=== PATIENT | male | born 1960 | race Caucasian/White ===

== ENCOUNTER → 2016-08-22 | Outpatient (CLI) | payer OTHER ==
--- NOTE | 2016-08-22 17:16 | CONS ---
DATE OF CONSULTATION: 08/22/2016 REASON FOR CONSULTATION: Sleep apnea. This is a 56-year-old male patient who was diagnosed having sleep apnea back in 2007. At that time the patient was found to have severe symptomatic obstructive sleep apnea with an AHI of 38, and severe nocturnal oxygen desaturation was also encountered during the sleep study. The patient was given CPAP at a pressure of 11 cm of water. Recently the patient reports that his machine has not been functioning right. No humidity is being delivered through the machine, and the patient is losing pressure and has become more symptomatic. Note that he has been very compliant with CPAP therapy over the years and he has been using it through a nasal pillow, which was quite comfortable. He also has gained around 25 pounds over the past year. He is coming in for reevaluation and he is very interested in undergoing his CPAP titration, and he will obviously want to upgrade his CPAP machine. Now that the treatment has not been successful, the patient has become much more symptomatic. He has been snoring, stopping breathing and feeling sleepy and tired during the day. He goes to bed around 11 p.m., wakes up at 7:30 to 8 a.m. in the morning. Despite taking an adequate amount of hours of sleep, he has become somnolent and sleepy. PAST MEDICAL HISTORY: 1. Obesity with interval 25-pound weight gain since 2007. 2. Obstructive sleep apnea with an AHI of 37 at baseline, maintained on CPAP pressure of 11. 3. Ulcerative colitis. 4. Hyperlipidemia. 5. Hypertension. 6. BPH. 7. Hypothyroidism. Surgical history includes colectomy with colostomy and subsequent reversal. DRUG ALLERGIES: NOT KNOWN. Medication list includes: 1. Vitamin D. 2. Tamsulosin. 3. Zocor. 4. Cozaar. 5. Synthroid. SOCIAL HISTORY: Nonsmoker. Drinks alcohol socially. No history of IV drugs. FAMILY HISTORY: Negative for sleep apnea. REVIEW OF SYSTEMS: Twelve-point review of systems was done. Positive findings were all mentioned above in the history of present illness. BP is 134/82, pulse 87, respiration 16, temperature 98.1. Saturations are 94% on room air. Neck size is 20 inches. BMI is 42.4. [place] score is 3. Weight is 277. GENERAL APPEARANCE: Calm, comfortable, obese. HEENT: Short neck. Crowding of posterior pharynx. No goiter or neck masses. LUNGS: Diminished breath sounds bilaterally; otherwise clear. HEART: Sounds are regular rate and rhythm. Normal S1, S2. No S3. No S4. No murmurs. ABDOMEN: Soft and nontender. EXTREMITIES: No edema. No cyanosis or clubbing at this point. IMPRESSION: 1. Severe symptomatic obstructive sleep apnea with an AHI of 37 at baseline. The patient was treated with CPAP at a pressure of 11 cm of water since 2007. Interval history is positive for increased sleepiness due to a malfunctioning CPAP unit. 2. Obesity with interval 25-pound weight gain. BMI is currently up to 42.4. 3. Ulcerative colitis. 4. Hyperlipidemia. 5. Hypertension. 6. Benign prostatic hypertrophy. 7. Hypothyroidism. PLAN: 1. Proceed with CPAP re-titration. Titration will be used to upgrade this patient's CPAP machine and at the same time to provide him the appropriate mask interface and adjust the CPAP pressure to make his treatment more successful. 2. Encourage weight loss. 3. Tight control of cardiovascular risk factors. 4. Will continue to follow.
== END | disposition home or self-care (01) ==
LOC: SLEEP 13:11
PROVIDERS: ATTEND Internal Medicine Critical Care Medicine
DX: G47.33 Obstructive sleep apnea (adult) (pediatric) (principal); K51.90 Ulcerative colitis, unspecified, without complications; E78.5 Hyperlipidemia, unspecified; I10 Essential (primary) hypertension; E03.9 Hypothyroidism, unspecified; N40.0 Benign prostatic hyperplasia without lower urinary tract symptoms; E66.9 Obesity, unspecified; Z68.41 Body mass index [BMI] 40.0-44.9, adult; Z79.899 Other long term (current) drug therapy
CPT/HCPCS: 99211

== ENCOUNTER → 2016-12-19 | Outpatient (CLI) | payer OTHER ==
--- NOTE | 2016-12-19 16:39 | PN ---
PROGRESS NOTE A 56-year-old male patient coming in for a compliancy check regarding ANH treatment. The patient was diagnosed having severe ANH with an AHI of 37 and the patient was given CPAP therapy and today he is coming in for a compliancy check. The patient has an auto CPAP unit with a minimum pressure of 10 and maximum pressure of 18. On today's evaluation, I educated the patient on the use of his CPAP machine. I showed him a lot of the options and features in the machine. I noted that he has been using the heated tubing in the wrong way and the appropriate use and application of this heated tube was explained. I noted the patient is doing much better. He is much more alert and awake during the day. His sleep quality is improved and is sleeping much better. Waking up alert without any hypersomnia or sleepiness or episodes of falling sleep. His AHI has dropped from June 15 down to 2.3 while on CPAP therapy. He is averaging about 8.6 hours of CPAP use per night and his P90 pressure is 17.6. No significant leaks around the mask. In fact his overall leak was 34 L/minutes. His current vitals BP is 158/86, pulse 86, respirations 16, weight is 281, temperature 98, his [place] score is 0 and saturation 95% on room air. GENERAL APPEARANCE: Calm, comfortable. HEENT: Negative for JVD. No goiter and no neck masses. The patient has significant crowding of posterior pharynx. Head is atraumatic, normocephalic. NECK: No goiter. LUNGS: Clear to auscultation. HEART: No wheeze or rhonchi. Heart sounds regular rhythm. Normal S1, S2. No S3. No murmurs. ABDOMEN: Soft, nontender. No organomegaly. No direct tenderness, rebound or guarding. EXTREMITIES: No edema. No cyanosis or clubbing. SKIN: Negative for rash or ulceration or wounds. NEURO: AO x3. There is no focal neurological deficits. IMPRESSION: 1. Severe obstructive sleep apnea with an AHI of 37. The patient is being successfully treated with an auto CPAP unit with above-mentioned settings and his treatment is successful and the patient is benefiting from the treatment. Furthermore the patient is compliant. 2. Hypersomnia improved, [place] score is down to 0. 3. Obesity, current weight is 281. 4. Ulcerative colitis. 5. Hyperlipidemia. 6. Hypertension. 7. Benign prostatic hypertrophy. 8. Hypothyroidism. PLAN: 1. Encourage weight loss. 2. Continue CPAP use at the same setting. 3. Gave the patient option of an AirFit P10 nasal pillows that can be used as an alternative to his Scanlon FX. 4. Treatment was successful and the patient is benefitting. The patient is much less sleepy during the day. 5. Will continue to follow and make further recommendations. The patient will see me back in a year's time in followup, earlier if needed. MMODL / IJN: [id number] /
== END | disposition home or self-care (01) ==
LOC: SLEEP 13:50
PROVIDERS: ATTEND Internal Medicine Critical Care Medicine
DX: G47.33 Obstructive sleep apnea (adult) (pediatric) (principal); E66.9 Obesity, unspecified; K51.90 Ulcerative colitis, unspecified, without complications; E78.5 Hyperlipidemia, unspecified; I10 Essential (primary) hypertension; N40.0 Benign prostatic hyperplasia without lower urinary tract symptoms; E03.9 Hypothyroidism, unspecified

== ENCOUNTER → 2020-06-21 | Outpatient (CLI) | payer BC ==
--- NOTE | 2020-06-21 14:46 | XR ---
EXAMINATION TYPE: XR chest 2V DATE OF EXAM: 06/21/2020 COMPARISON: Chest x-ray 06/30/2009 HISTORY: R06.02 TECHNIQUE: Frontal and lateral views of the chest are obtained. FINDINGS: There is no focal air space opacity, pleural effusion, or pneumothorax seen. The cardiac silhouette size is within normal limits. The osseous structures are intact, multilevel anterior karen wing osteophytes with preservation of disc height may be indicative of diffuse idiopathic skeletal hy perostosis. IMPRESSION: No acute cardiopulmonary process.
== END | disposition home or self-care (01) ==
LOC: RADXRMAIN 14:09
PROVIDERS: ATTEND Internal Medicine
DX: R06.02 Shortness of breath (principal)
CPT/HCPCS: 71046

== ENCOUNTER → 2020-06-29 | Outpatient (CLI) | payer BC ==
--- NOTE | 2020-06-29 16:52 | ECHOF ---
Referral Reason:R06.02 SOB MEASUREMENTS -------- HEIGHT: 175.3 cm WEIGHT: 120.2 kg BP: 151/83 IVSd: 1.3 cm (0.6 - 1.1) LVIDd: 4.5 cm (3.9 - 5.3) LVPWd: 1.2 cm (0.6 - 1.1) EDV(Teich): 95 ml IVSs: 1.8 cm LVIDs: 3.2 cm LVPWs: 1.9 cm %IVS Thck: 31 % ESV(Teich): 40 ml EF(Teich): 57 % %FS: 30 % SV(Teich): 54 ml LA Diam: 3.6 cm (2.7 - 3.8) RVIDd: 3.0 cm (< 3.3) Ao Diam: 3.3 cm (2.0 - 3.7) AV Cusp: 2.4 cm (1.5 - 2.6) EPSS: 0.4 cm MV E Oscar: 0.83 m/s MV DecT: 164 ms MV Dec Panola: 5.1 m/s MV A Oscar: 0.56 m/s MV E/A Ratio: 1.48 MV PHT: 47 ms AV Vmax: 1.09 m/s AV maxP.71 mmHg MV EF SLOPE: 129.25 mm/s (70 - 150) MV EXCURSION: 22.13 mm (> 18.000) FINDINGS -------- Sinus rhythm. This was a technically difficult study with suboptimal views. The left ventricular size is normal. There is mild concentric left ventricular hypertrophy. Overa left ventricular systolic function is normal with, an EF between 60 - 65 %. The right ventricle is normal in size. The left atrium is normal in size. The right atrium is normal in size. 4 ml of Lumason was utilized for enhancement of images. Interatrial and interventricular septum intact. The aortic valve is trileaflet, and appears structurally normal. No aortic stenosis or regurgitation. The mitral valve is normal. The tricuspid valve appears structurally normal. There is no pulmonic regurgitation present. The aortic root size is normal. Normal inferior vena cava with normal inspiratory collapse consistent with estimated right atrial pre ssure of 5 mmHg. There is no pericardial effusion. CONCLUSIONS -------- 1. The left ventricular size is normal. 2. There is mild concentric left ventricular hypertrophy. 3. Overall left ventricular systolic function is normal with, an EF between 60 - 65 %. 4. 4 ml of Lumason was utilized for enhancement of images. 5. The aortic valve is trileaflet, and appears structurally normal. No aortic stenosis or regurgitati on. 6. There is no pericardial effusion. STERILE PREPARATION TECHNICIAN: Karishma Ortiz RDCS
== END | disposition home or self-care (01) ==
LOC: RADECHMAIN 11:17
PROVIDERS: ATTEND Internal Medicine
DX: I51.7 Cardiomegaly (principal)
CPT/HCPCS: 93306; Q9950

== ENCOUNTER → 2020-08-11 | Outpatient (CLI) | payer BC ==
--- NOTE | 2020-08-11 16:30 | CONS ---
CONSULTATION DATE OF SERVICE: 08/11/2020 This 60-year-old gentleman had been re-evaluated in Sleep Center for obstructive sleep apnea-hypopnea syndrome. HISTORY OF PRESENT ILLNESS/SLEEP-WAKE EVALUATION: Patient has history of obstructive sleep apnea for 15 years and he continues to use his CPAP equipment every night. His usual sleep schedule from 11 p.m. to 7:30 a.m. With the machine, he usually does not snore. He wakes up at night 2-3 times to go to the bathroom because he has ulcerative colitis, status post colectomy. No history of hypnagogic hallucinations, sleep paralysis or cataplexy. During the day, patient does not have significant sleepiness. [place] Sleepiness Scale is 9. I checked the patient;s CPAP unit. Usage is 100% of the time more than 4 hours. Average usage is 8 hours 37 minutes. Range of the pressure 10 to 18 with 95% pressure of 15.9. Leak is 19.6 L/minute, 95%. Apnea-hypopnea index 2.3, which is totally normal PAST MEDICAL HISTORY: Positive for episodes of difficulties to breathe with the wheezing about 2 months ago, which have been improved and normalized on bronchodilators and steroids, hypertension, hypothyroidism, diabetes mellitus, ulcerative colitis, hyperlipidemia. PAST SURGICAL HISTORY: Colectomy, reversed colostomy. MEDICATIONS: Tamsulosin 0.4 mg twice a day, loratadine 10 mg twice a day, loperamide 2 mg as needed, levothyroxine 175 mcg once a day, atorvastatin 20 mg once a day, lisinopril 2.5 mg once a day, Januvia 100 mg once a day, Jardiance 25 mg once a day, torsemide 20 mg once a day, vitamin D3, albuterol on p.r.n. basis, aspirin 325 mg once a day. SOCIAL HISTORY: Negative for smoking or using alcohol. FAMILY HISTORY: Heart problems. REVIEW OF SYSTEMS: Bowel movements every several hours. No fevers. No double vision. No recent chest pain. No shortness of breath. No abdominal pain. No bleeding episodes. No blood in the urine. No seizure episodes. PHYSICAL EXAMINATION: GENERAL: gentleman without distress. VITAL SIGNS: BP 126/80, HR 82, RR 12, height 5 feet 9 inches, weight 276.8, temperature 97.9, oxygen saturation at room air 96%, BMI 41.0. HEENT: PERRLA, EOMI. Evaluation of oropharynx low position of soft palate. NECK: Supple, no JVD. Thyroid is not palpable. LUNGS: Clear to percussion and to auscultation. Good air exchange. No wheezing or rhonchi. HEART: S1, S2 regular. No murmurs, gallops, or rubs. ABDOMEN: Obese. EXTREMITIES: No clubbing or cyanosis. TRAINING GENERALIST: Awake, alert, and oriented X3. Cranial nerves 2 to 7 intact. There is no fasciculation or atrophy. noted. No focal deficits observed. IMPRESSION: 1. Severe obstructive sleep apnea-hypopnea syndrome apnea-hypopnea index 37. Patient demonstrated 100% compliance with treatment with a CPAP machine benefitting from treatment. 2. Obesity. 3. Ulcerative colitis. 4. Status post colectomy and colostomy. 5. Colostomy had been reversed. 6. Hypertension. 7. Hypothyroidism. 8. Asthma. 9. Diabetes mellitus. 10.Hyperlipidemia. PLAN: 1. Patient will continue to use CPAP equipment every night for the whole night. 2. Sleep hygiene with regular time in bed for 7-1/2 to 8 hours. 3. No driving if feeling sleepiness. 4. Losing weight. Thank you very much for allowing me to participate in management of your patient. Sincerely, Keaton Covington MD, PhD, FAASM Diplomat of [place] [employer] [place] [employer] Real Estate Legal Assistant of [facility] [place] MMODL / MEGHANNN: [id number] /
== END ==
CPT/HCPCS: 99211

== ENCOUNTER → 2023-09-06 | Outpatient (CLI) | payer MEDICARE ==
--- NOTE | 2023-09-06 17:49 | US ---
EXAMINATION TYPE: US carotid duplex BILAT DATE OF EXAM: 09/06/2023 COMPARISON: NONE CLINICAL INDICATION: Male, 63 years old with history of Z13.6 ENCOUNTER FOR SCREENING FOR CARDIOVASCU LAR D; Hx hypertension, hyperlipidemia. TECHNIQUE: Carotid duplex ultrasound examination. Indirect Doppler criteria was utilized. FINDINGS: EXAM MEASUREMENTS: RIGHT: Peak Systolic Velocity (PSV) cm/sec ----- Right CCA: 112.5 ----- Right ICA: 71.3 ----- Right ECA: 98.5 ICA/CCA ratio: 0.6 RIGHT: End Diastole cm/sec ----- Right CCA: 30.7 ----- Right ICA: 19.7 ----- Right ECA: 14.9 LEFT: Peak Systolic Velocity (PSV) cm/sec ----- Left CCA: 109.5 ----- Left ICA: 73.8 ----- Left ECA: 81.2 ICA/CCA ratio: 0.7 LEFT: End Diastole cm/sec ----- Left CCA: 18.9 ----- Left ICA: 9.2 ----- Left ECA: 13.1 VERTEBRALS (direction of flow): Right Vertebral: Antegrade Left Vertebral: Antegrade Rhythm: Arrhythmia PLASTIC SURGERY ASSISTANT NOTES: No elevated velocities. IMPRESSION: 1. No significant atheromatous plaque. 2. No hemodynamically significant stenosis based on peak systolic velocities and ratios Criteria for Assigning % of Stenosis / Diameter reduction (Estimation based on the indirect measurements of the internal carotid artery velocities (ICA PSV). 1. Normal (no stenosis)=ICA PSV < 125 cm/s: ratio < 2.0: ICA EDV<40 cm/s. 2. Less than 50% stenosis=ICA PSV < 125 cm/s: ratio < 2.0: ICA EDV<40 cm/s. 3. 50 to 69% stenosis=ICA PSV of 125 to 230 cm/s: ration 2.0 ? 4.0: ICA EDV 40-100 cm/s. 4. Greater than 70% stenosis to near occlusion= ICA PSV > 230 cm/s: ratio > 4.0: ICA EDV > 100 cm/s. 5. Near occlusion= ICA PSV velocities may be low or undetectable: variable ratio and ICA EDV. 6. Total occlusion=unable to detect flow.
--- NOTE | 2023-09-06 17:55 | CA ---
Transthoracic Echo Report Name: Ian Nuñez Age: 63 Gender: M : 1960 Exam Date: 09/06/2023 15:18 Exam Location: [facility] Ht (in): 69 Wt (lb): 265 Ordering Physician: Roxy Fitzgerald MD Attending/Referring Phys: Decorating Supervisor Ashley Scherer RDCS Procedure CPT: Indications: Z13.6 ENCOUNTER FOR SCREENING FOR CARDIOVASCULAR D Cardiac Hx: Technical Quality: Technically difficult study Contrast 1: Definity Total Dose (mL): 2 Contrast 2: Total Dose (mL): MEASUREMENTS (Male / Female) Normal Values 2D ECHO LVOT Diameter 2.6 cm LV Diastolic Volume MOD BP 108.5 cm??? 67 - 155 / 56 - 104 cm??? LV Systolic Volume MOD BP 48.6 cm??? 22 - 58 / 19 - 49 cm??? LV Ejection Fraction MOD BP 55.2 % >= 55 % LV Cardiac Index MOD BP 2036.9 cm???/min???m??? LV Diastolic Volume MOD 4C 128.8 cm??? LV Systolic Volume MOD 4C 53.3 cm??? LV Ejection Fraction MOD 4C 58.6 % LV Cardiac Index MOD 4C 2565.0 cm???/min???m??? LV Diastolic Length 4C 9.0 cm LV Systolic Length 4C 7.6 cm LV Diastolic Volume MOD 2C 87.3 cm??? LV Systolic Volume MOD 2C 40.7 cm??? LV Ejection Fraction MOD 2C 53.4 % LV Cardiac Index MOD 2C 1584.5 cm???/min???m??? LV Diastolic Length 2C 8.6 cm LV Systolic Length 2C 7.0 cm LA Volume 47.2 cm??? 18 - 58 / 22 - 52 cm??? LA Volume Index 19.1 cm???/m??? 16 - 28 cm???/m??? Ascending Aorta Diameter 3.0 cm DOPPLER AV Peak Velocity 141.5 cm/s AV Peak Gradient 8.0 mmHg AV Mean Velocity 91.9 cm/s AV Mean Gradient 4.0 mmHg AV Velocity Time Integral 23.4 cm LVOT Peak Velocity 115.5 cm/s LVOT Peak Gradient 5.3 mmHg LVOT Velocity Time Integral 20.0 cm LVOT Stroke Volume 107.1 cm??? LVOT Stroke Volume Index 46.0 ml/m??? LVOT Cardiac Index 3641.7 cm???/min???m??? AV Area Cont Eq vti 4.6 cm??? AV Area Cont Eq pk 4.4 cm??? MV Area PHT 5.9 cm??? Mitral E Point Velocity 67.9 cm/s Mitral A Point Velocity 56.9 cm/s Mitral E to A Ratio 1.2 MV Deceleration Time 128.0 ms PV Peak Velocity 101.9 cm/s PV Peak Gradient 4.1 mmHg FINDINGS Left Ventricle Left ventricular ejection fraction is estimated at 55-60 %. Left ventricular cavity size normal. Left ventricular wall thickness normal. No obvious regional wall motion abnormalities. Right Ventricle Right ventricle not well visualized. Unable to estimate the right ventricular systolic pressure. Right Atrium Right atrium not well visualized. Left Atrium Normal left atrial size. Mitral Valve Structurally normal mitral valve. No mitral stenosis, regurgitation or prolapse. Aortic Valve Trileaflet aortic valve. No aortic valve stenosis or regurgitation. Tricuspid Valve Structurally normal tricuspid valve. No tricuspid stenosis, regurgitation or prolapse. Pulmonic Valve Pulmonic valve not well visualized. Pericardium No pericardial effusion. Aorta Normal size aortic root and proximal ascending aorta. CONCLUSIONS Normal LV size and function Previewed by: Dr. Alvino Guillen MD (Electronically Signed) Final Date: 06 September 2023 17:53
== END | disposition home or self-care (01) ==
LOC: RADUSWWP 14:21
PROVIDERS: ATTEND Internal Medicine
DX: Z13.6 Encounter for screening for cardiovascular disorders (principal); I65.23 Occlusion and stenosis of bilateral carotid arteries
CPT/HCPCS: 93880; C8929; Q9957; 93306

== ENCOUNTER → 2023-09-25 | Outpatient (CLI) | payer MEDICARE ==
--- NOTE | 2023-09-25 10:17 | MR ---
EXAMINATION TYPE: MR Prostate wo/w con DATE OF EXAM: 09/25/2023 8:30 AM COMPARISON: None. CLINICAL INDICATION:Male, 63 years old with history of R97.20 ELEVATED PSA; TECHNIQUE: Multi-planar, multi-sequence imaging of the pelvis is performed prior to and following the uncomplicated administration of bolus intravenous gadolinium. CONTRAST: Gadavist 12ml. Interpretive Criteria: PI-RADS v2.1 SERUM PSA: 2022=3.6 2023=4.08 SURGICAL PATHOLOGY: No data available. FINDINGS: Prostatic dimensions: 6.3 x 7.8 x 4.8 cm. Ellipsoid Volume:123.50 (PSA density=0.03 ng/mL/mL) CENTRAL GLAND (Central and Transition Zones/CZ+TZ): Multiple bilateral, heterogenous appearing hypertrophic stromal nodules, without suspicious lesion. M edian lobe hypertrophy with protrusion into the base of the bladder. (PI-RADS 2) PERIPHERAL ZONE (PZ): Bilateral linear, indistinct wedgelike areas of low ADC, and low T2 signal, No evidence of masslike a bnormality, or localized perfusional hypervascularity, to further suggest a focus of clinically signi ficant prostate cancer. (PI-RADS 2) SEMINAL VESICLES (SV): Symmetric and unremarkable. PERIPROSTATIC TISSUES: Unremarkable. LYMPH NODES: Several nonenlarged prominent mesorectal fascial lymph nodes series 501 image 33 measuring 6 mm, righ t + U: Back common iliac artery lymph node measuring 8 mm. REMAINING PELVIS: Bladder wall is within normal limits given distention. No abnormal free or organized intrapelvic fluid collection. No pathologic bowel dilation or mural thickening. No hernia visualized OSSEOUS STRUCTURES: No suspicious osseous abnormality. IMPRESSION: 1. No specific features for high-risk prostate cancer. Maximum PI-RADS score: 2. 2. Substantial BPH, estimated gland volume 123.50 mL. 3. Couple prominent lymph nodes in the right common iliac chain which are indeterminate. Additional p rominent mesorectal fascial lymph nodes are also present. These all could be incidental lymph node. C onsider correlation with prior cross-sectional imaging at outside institutions. No bowel wall thicken ing within the rectum or sigmoid colon visualized suggest mass.
== END | disposition home or self-care (01) ==
LOC: RADMRIMAIN 07:24
PROVIDERS: ATTEND Internal Medicine
DX: N40.0 Benign prostatic hyperplasia without lower urinary tract symptoms (principal); R97.20 Elevated prostate specific antigen [PSA]
CPT/HCPCS: 72197; A9585

== ENCOUNTER → 2023-10-31 | Outpatient (CLI) | payer OTHER | LOC: 3 N SLEEP 15:08 | PROVIDERS: ATTEND Internal Medicine | DX: G47.33 Obstructive sleep apnea (adult) (pediatric) (principal) | CPT/HCPCS: 99211 ==

== ENCOUNTER → 2024-01-31 | Outpatient (CLI) | payer MEDICARE ==
[2024-01-31 14:49] VITALS: BP 116/82; PULSE 81; RESP 18; TEMP 97.8
--- NOTE | 2024-01-31 15:23 | P.PROGSL ---
Subjective DATE: 01/31/2024 FOLLOW UP VISIT. Patient with obstructive sleep apnea hypopnea syndrome return to sleep center for follow-up visit. Information from previous visit have been reviewed. Patient is using PAP equipment every night for the whole night, getting PAP supplies in time. The patient does not have significant problems with the mask, PAP unit and humidification. [place] sleepiness scale is 2, which is normal. I checked information from PAP unit. PAP unit pressure 10-20, average 15.4 cm H2O. Usage is 100% for more then 4 hours, average 8.9 hours per night. Leak is 2 l/m, which is in acceptable range. Apnea Hypopnea Index is 2.9, which is normal. MEDICATIONS Ozempic, atorvastatin, furosemide, Januvia, tamsulosin, levothyroxi ne, lisinopril, Jardiance. During physical exam: GENERAL: A pleasant patient without any distress. VITAL SIGNS: Please see below, weight is 259.2 lbs. HEENT: PERRLA, EOMI.low position of soft palate, Mallapati 4 . NECK: Supple. No JVD. LUNGS: Clear to percussion and to auscultation. Good air exchange. No wheezing or rhonchi. HEART: S1, S2 regular. ABDOMEN: Soft and nontender. Slightly obese EXTREMITIES: No clubbing or cyanosis. WHOLESALE AGRONOMIST: Awake, alert, and oriented x3. No focal deficit. Impressions: 1. Obstructive sleep apnea-hypopnea syndrome. Patient demonstrated great compliance with treatment, benefiting from treatment. 2. Obesity, BMI 40.3 patient lost 8 pounds since previous visit. 3. Hypertension. 4. Diabetes mellitus. 5. Asthma. 6. Ulcerative colitis. 7. Status post colectomy and reversed colostoma. 8. Hypothyroidism. 9. Hyperlipidemia. Plan: 1. Continue using PAP equipment every night for the whole night. 2. Sleep hygiene with regular time in bed for at least 7.5-8 hours 3. PAP unit should stay lower then position of the head. 4. Advised patient to remove all remaining water from humidifier canister daily and make it dry after each usage. Refill canister with fresh distilled water before each usage. 5. Watching and losing weight. 6. Precautions related to driving. No driving if feel any sleepiness. 7. I will maintain prescription for PAP supplies including mask, tube, filters. 8. Follow up visit in 8 months or earlier if patient has any problems. Thank you very much for allowing me to participate in the management of your patient. Keaton Covington MD, PhD, FAASM. Diplomat of [place] [employer], Sleep Medicine Board by [place] [employer] Analytical Technician of [facility] [place] cc: Roxy Fitzgerald MD Objective - Vital Signs Vital Signs: Vital Signs Temp 97.8 F 01/31/24 14:47 Pulse 81 01/31/24 14:47 Resp 18 01/31/24 14:47 BP 116/82 01/31/24 14:47 Pulse Ox 96 01/31/24 14:47 FiO2 Intake & Output 01/30/24 01/31/24 01/31/24 18:59 06:59 18:59 Weight 117.537 kg
== END ==
LOC: 3 N SLEEP 14:18
PROVIDERS: ATTEND Internal Medicine
DX: G47.33 Obstructive sleep apnea (adult) (pediatric) (principal); E66.9 Obesity, unspecified; I10 Essential (primary) hypertension; E11.9 Type 2 diabetes mellitus without complications; J45.909 Unspecified asthma, uncomplicated; K51.90 Ulcerative colitis, unspecified, without complications; E03.9 Hypothyroidism, unspecified; E78.5 Hyperlipidemia, unspecified; Z98.890 Other specified postprocedural states; Z99.89 Dependence on other enabling machines and devices; Z68.41 Body mass index [BMI] 40.0-44.9, adult
CPT/HCPCS: 99212